=== PATIENT | male | born 1995 | race American Indian/Alaskan Native ===

== ENCOUNTER 2017-11-15 13:12 | Emergency (ER) | payer SELFPAY ==
[2017-11-15 13:23] VITALS: BP 111/82
--- NOTE | 2017-11-15 13:44 | Emergency Department Report ---
Upper Extremity - HPI Chief Complaint: Shoulder Injury Stated Complaint: ARM DISLOCATION Time Seen by Provider: 11/15/17 13:44 Upper Extremity: Right Shoulder Occurred When: Today Mechanism: Hyperextension Severity: moderate Symptoms: Yes Pain with Movement, Yes Deformity, Yes Limited Range of Movement, No Numbness, No Weakness, No Swelling, No Bruising/Ecchymosis, No Laceration or Abrasion ED Review of Systems ROS: Stated complaint: ARM DISLOCATION Other details as noted in HPI Comment: All other systems reviewed and negative Constitutional: denies: chills, fever, weakness Eyes: denies: vision change ENT: denies: ear pain, hearing loss Respiratory: denies: cough, orthopnea, shortness of breath Cardiovascular: denies: chest pain, palpitations, syncope Endocrine: no symptoms reported Gastrointestinal: denies: abdominal pain, nausea, vomiting, diarrhea Genitourinary: denies: urgency, frequency Musculoskeletal: as per HPI. denies: back pain, joint swelling Skin: denies: rash, change in color Neurological: denies: headache, numbness, paresthesias, confusion Psychiatric: denies: anxiety, auditory hallucinations Hematological/Lymphatic: denies: easy bleeding, easy bruising ED Past Medical Hx - Past Medical History Previous Medical History?: No Additional medical history: shoulder dislocation - Surgical History Past Surgical History?: No - Social History Smoking Status: Current Every Day Smoker Substance Use Type: None - Medications Home Medications: Home Medications Medication Instructions Recorded Confirmed Last Taken Type Ibuprofen [Motrin] 800 mg PO Q8HR PRN 7 Days #20 11/15/17 Unknown Rx tablet Upper Extremity Exam - Exam General: Vital signs noted. No distress. Alert and acting appropriately. Head and Torso: No HEENT Abnormality, No Neck Tenderness, No Chest/Lungs Abnormality, No Abdominal Tenderness, No Back Tenderness Shoulder Exam: Yes Shoulder Deformity, No Shoulder Tenderness, No Clavicle Tenderness, No Normal Range of Motion in Shoulder, No AC Joint Tenderness Arm Exam: No Arm/Humerus Tenderness, No Arm Deformity Elbow: No Elbow Tenderness, No Normal Range of Motion in Elbow, No Elbow Deformity Forearm: No Forearm Tenderness, No Forearm Deformity, No Pain with Pronation, No Pain with Supination Wrist: No Wrist Tenderness, No Normal ROM in Wrist, No Wrist Deformity, No Snuffbox Tenderness, No Pain with Axial Thumb Compression Hand: Yes Normal ROM in Digit(s), No Hand Tenderness, No Hand Deformity, No Digit Tenderness CMS Exam: Yes Normal Distal Pulses, Yes Normal Capillary Refill, Yes Normal Distal Sensation, No Broken Skin ED Course Vital Signs 11/15/17 13:18 Temperature 98.4 F Pulse Rate 90 Respiratory 20 Rate Blood Pressure 111/82 O2 Sat by Pulse 99 Oximetry - Reevaluation(s) Reevaluation #1: 11/15/17 13:52 Simple manipulation was done in the right shoulder and the dislocation was reduced without any pain to the patient. Patient tolerated the procedure well without any complication. - Orthopedic Joint Reduction Joint #1 Consent Obtained: verbal consent Time Out Performed: Yes Side: right Joint Reduction Location: shoulder Analgesia: none, other (Patient refused.) Shoulder Technique Used (if applicable): scapula manipulation Technique Used: direct manipulation Post-Reduction Neuro Exam: intact Post-Reduction Vascular Exam: intact Post Reduction X-Ray Obtained: Yes Post Reduction X-Ray Results: reduced Splint Applied: Yes Patient Tolerated Procedure: well ED Medical Decision Making - Radiology Data Radiology results: image reviewed - Medical Decision Making Right shoulder dislocation. Critical care attestation.: If time is entered above; I have spent that time in minutes in the direct care of this critically ill patient, excluding procedure time. ED Disposition Clinical Impression: Shoulder dislocation Qualifiers: Encounter type: initial encounter Laterality: right Qualified Code(s): S43.004A - Unspecified dislocation of right shoulder joint, initial encounter Disposition: - TO HOME OR SELFCARE Is pt being admited?: No Does the pt Need Aspirin: No Condition: Stable Instructions: Shoulder Dislocation (ED) Additional Instructions: Please follow up with the orthopedic surgeon Dr. Marcie Ruiz in his outpatient clinic for further evaluation and recommendation. Return to the emergency room if the condition worsens. Prescriptions: Ibuprofen [Motrin] 800 mg PO Q8HR PRN 7 Days #20 tablet PRN Reason: Pain Referrals: ROSY RUIZ MD [Staff Physician] - 3-5 Days Time of Disposition: 14:55
[2017-11-15] MEDS ORDERED: PERCOCET 5/325 PO ONE (13:59)
--- NOTE | 2017-11-15 14:13 | XRay Report ---
RIGHT SHOULDER, 3 VIEWS: HISTORY: Right shoulder deformity, injury. Normal bone mineralization. No acute osseous injury or joint pathology is detected. The soft tissues are unremarkable. IMPRESSION: Right shoulder within normal limits.
== END 2017-11-15 14:30 | disposition home or self-care (01) ==
LOC: ED 13:12
DX: S43.004A Unspecified dislocation of right shoulder joint, initial encounter (principal); F17.200 Nicotine dependence, unspecified, uncomplicated; X58.XXXA Exposure to other specified factors, initial encounter; Y93.89 Activity, other specified; Y92.89 Other specified places as the place of occurrence of the external cause; Y99.8 Other external cause status
CPT/HCPCS: 99283